=== PATIENT | female | born 1985 | race Caucasian/White ===

== ENCOUNTER 2019-05-09 05:48 | Emergency (ER) | payer MEDICAID ==
[~2019-05-09] VITALS: Ht 162.6 cm; Wt 81.6 kg
[2019-05-09 05:54] VITALS: Ht 162.6 cm; Wt 81.6 kg
[2019-05-09 07:25] VITALS: BP 122/43
== END 2019-05-09 07:25 | disposition home or self-care (01) ==
LOC: ED 05:48
DX: J45.909 Unspecified asthma, uncomplicated (principal)
CPT/HCPCS: J7613; J7644

== ENCOUNTER 2020-10-24 14:36 | Emergency (ER) | payer OTHER ==
[~2020-10-24] VITALS: Ht 170.2 cm; Wt 77.1 kg
[2020-10-24 14:53] VITALS: Ht 170.2 cm; Wt 77.1 kg
[2020-10-24 15:28] LABS: BASOPHIL % 0.2 % (0.2-1.3); PLATELET COUNT 309 x10^3mcL (179-408); RED CELL DISTRIBUTION WIDTH 13.4 % (12.3-17.7)
[2020-10-24] MEDS ORDERED: CEPHALEXIN500 MG PO (18:57)
[2020-10-24 19:06] LABS: UA SPECIFIC GRAVITY >=1.030 (1.005-1.035); microscopic required? YES; urine erythrocyte 1+ (NEGATIVE)
[2020-10-24 19:16] VITALS: BP 110/60
== END 2020-10-24 19:16 | disposition home or self-care (01) ==
LOC: ED 14:36
PROVIDERS: Emergency Medicine
DX: O23.41 Unspecified infection of urinary tract in pregnancy, first trimester (principal); O20.0 Threatened abortion; O99.511 Diseases of the respiratory system complicating pregnancy, first trimester; Z3A.08 8 weeks gestation of pregnancy
CPT/HCPCS: J0696